=== PATIENT | female | born 1980 | race Caucasian/White ===

== ENCOUNTER 2020-10-20 15:35 | Emergency (ER) | payer OTHER ==
[2020-10-20 15:46] VITALS: TEMP 97.9
[2020-10-20] MEDS ORDERED: ONDANSETRON 4 MG/2 ML VIAL IVP STA (16:03)
[2020-10-20] MEDS ORDERED: HYDROmorphone 0.5 MG/0.5 ML SYRINGE IVP STA (16:03)
[2020-10-20] MEDS ORDERED: KETOROLAC 15 MG/ML 1 ML VIAL IVP STA (16:03)
[2020-10-20] MEDS ORDERED: SODIUM CHLORIDE 0.9% 500 ML 500 ML IV ONE (16:03)
--- NOTE | 2020-10-20 16:12 | ED ---
General Adult HPI - General Chief complaint: Recheck/Abnormal Lab/Rx Stated complaint: bilat breast pain Time Seen by Provider: 10/20/20 15:52 Source: patient Mode of arrival: ambulatory Limitations: no limitations - History of Present Illness Initial comments: 40 year-old female with past history significant for breast cancer with bilateral mastectomy and reconstruction, presents to the emergency department for evaluation of bilateral breast and axilla. States that for the last couple of weeks she has been having sharp stabbing pains to the left lateral breast near the axilla. States that today she started having pain on the right side in the same location and the pain seemed to have worsened. She denies any skin changes or swelling. Denies fever or chills. States she does feel a chest pressure overall. Denies any worsening pain with deep breathing, denies any shortness of breath. Last mammogram was 2018, has not followed up since. States she smoked marijuana and had some wine today for the pain. Patient denies any recent rash, cough, abdominal pain, nausea, vomiting, diarrhea, constipation, back pain, numbness, tingling, dizziness, weakness, hematuria, dysuria, urinary urgency, urinary frequency, headache, visual changes, or any other complaints. - Related Data Previous Rx's Medication Instructions Recorded Ibuprofen [Motrin] 600 mg PO Q8HR PRN #30 tab 10/20/20 Allergies Allergy/AdvReac Type Severity Reaction Status Date / Time vancomycin Allergy Rash/Hives Verified 10/20/20 16:30 Review of Systems ROS Statement: Those systems with pertinent positive or pertinent negative responses have been documented in the HPI. ROS Other: All systems not noted in ROS Statement are negative. Past Medical History Past Medical History: Cancer Additional Past Medical History / Comment(s): breast ca ,covid 05/04 Past Surgical History: Breast Surgery, Section, Cholecystectomy, Hernia Repair, Tubal Ligation Additional Past Surgical History / Comment(s): sanya masectomy, breast/nipple reconstruction Past Psychological History: No Psychological Hx Reported Smoking Status: Vaper Past Alcohol Use History: Occasional Past Drug Use History: Marijuana General Exam Limitations: no limitations General appearance: alert, in no apparent distress, other (Physical well- developed, well-nourished adult female patient in no acute distress. Vital signs upon presentation are temperature 97.9F, pulse 99, respirations 18, blood pressure 130/79, pulse ox 98% on room air.) Eye exam: Present: normal appearance, PERRL, EOMI. Absent: scleral icterus, conjunctival injection, periorbital swelling ENT exam: Present: normal exam, normal oropharynx, mucous membranes moist Respiratory exam: Present: normal lung sounds bilaterally. Absent: respiratory distress, wheezes, rales, rhonchi, stridor Cardiovascular Exam: Present: regular rate, normal rhythm, normal heart sounds. Absent: systolic murmur, diastolic murmur, rubs, gallop, clicks Neurological exam: Present: alert, oriented X3, CN II-XII intact Psychiatric exam: Present: normal affect, normal mood Skin exam: Present: warm, dry, intact, normal color, other (Skin overlying the breasts is pink, warm, dry. No evidence or rash. No soft tissue swelling. There is tenderness over the left lateral aspect of the breast and axilla. No lymphadenopathy noted.). Absent: rash Course Vital Signs 10/20/20 10/20/20 15:40 17:34 Temperature 97.9 F Pulse Rate 99 95 Respiratory 18 16 Rate Blood Pressure 130/79 111/83 O2 Sat by Pulse 98 98 Oximetry EKG Findings - EKG Comments: EKG Findings:: EKG obtained at 1724 shows sinus bradycardia with a ventricular rate of 57, TN interval 164, QRS duration 76, QT 424, QTc 412. No evidence of ST elevation or depression. Medical Decision Making - Medical Decision Making 40-year-old female patient with past medical history significant for breast cancer with mastectomy and reconstructive surgery presents for evaluation of bilateral breast pain. Last surgeries were completed 3 years ago. Started having pain a couple of weeks ago. Physical examination is unremarkable. Labs reviewed and are unremarkable. EKG is normal. Chest x-ray is negative. Upon reevaluation she is resting comfortable in bed states symptoms are improved. She will be discharged to follow-up with her general surgeon or breast surgeon for further evaluation as is possible. Return parameters were discussed in detail. She verbalizes understanding and agrees with this plan. Case discussed with my attending Dr. Nava. - Lab Data Result diagrams: 10/20/20 16:25 10/20/20 16:25 Lab Results 10/20/20 10/20/20 10/20/20 Range/Units 16:25 16:25 16:25 WBC 7.7 (3.8-10.6) k/uL RBC 4.68 (3.80-5.40) m/uL Hgb 14.7 (11.4-16.0) gm/dL Hct 44.0 (34.0-46.0) % MCV 94.1 (80.0-100.0) fL MCH 31.4 (25.0-35.0) pg MCHC 33.4 (31.0-37.0) g/dL RDW 12.9 (11.5-15.5) % Plt Count 264 (150-450) k/uL MPV 6.7 Neutrophils % 68 % Lymphocytes % 23 % Monocytes % 5 % Eosinophils % 1 % Basophils % 1 % Neutrophils # 5.2 (1.3-7.7) k/uL Lymphocytes # 1.7 (1.0-4.8) k/uL Monocytes # 0.4 (0-1.0) k/uL Eosinophils # 0.1 (0-0.7) k/uL Basophils # 0.1 (0-0.2) k/uL D-Dimer (<0.60) mg/L FEU Sodium 139 (137-145) mmol/L Potassium 3.7 (3.5-5.1) mmol/L Chloride 106 (98-107) mmol/L Carbon Dioxide 25 (22-30) mmol/L Anion Gap 8 mmol/L BUN 14 (7-17) mg/dL Creatinine 0.69 (0.52-1.04) mg/dL Est GFR (CKD-EPI)AfAm >90 (>60 ml/min/1.73 sqM) Est GFR (CKD-EPI)NonAf >90 (>60 ml/min/1.73 sqM) Glucose 89 (74-99) mg/dL Calcium 9.5 (8.4-10.2) mg/dL Magnesium 2.1 (1.6-2.3) mg/dL Total Bilirubin 0.8 (0.2-1.3) mg/dL AST 20 (14-36) U/L ALT 13 (4-34) U/L Alkaline Phosphatase 45 (38-126) U/L Troponin I <0.012 (0.000-0.034) ng/mL Total Protein 7.4 (6.3-8.2) g/dL Albumin 4.7 (3.5-5.0) g/dL 10/20/20 Range/Units 16:25 WBC (3.8-10.6) k/uL RBC (3.80-5.40) m/uL Hgb (11.4-16.0) gm/dL Hct (34.0-46.0) % MCV (80.0-100.0) fL MCH (25.0-35.0) pg MCHC (31.0-37.0) g/dL RDW (11.5-15.5) % Plt Count (150-450) k/uL MPV Neutrophils % % Lymphocytes % % Monocytes % % Eosinophils % % Basophils % % Neutrophils # (1.3-7.7) k/uL Lymphocytes # (1.0-4.8) k/uL Monocytes # (0-1.0) k/uL Eosinophils # (0-0.7) k/uL Basophils # (0-0.2) k/uL D-Dimer <0.17 (<0.60) mg/L FEU Sodium (137-145) mmol/L Potassium (3.5-5.1) mmol/L Chloride (98-107) mmol/L Carbon Dioxide (22-30) mmol/L Anion Gap mmol/L BUN (7-17) mg/dL Creatinine (0.52-1.04) mg/dL Est GFR (CKD-EPI)AfAm (>60 ml/min/1.73 sqM) Est GFR (CKD-EPI)NonAf (>60 ml/min/1.73 sqM) Glucose (74-99) mg/dL Calcium (8.4-10.2) mg/dL Magnesium (1.6-2.3) mg/dL Total Bilirubin (0.2-1.3) mg/dL AST (14-36) U/L ALT (4-34) U/L Alkaline Phosphatase (38-126) U/L Troponin I (0.000-0.034) ng/mL Total Protein (6.3-8.2) g/dL Albumin (3.5-5.0) g/dL - Radiology Data Radiology results: report reviewed, image reviewed 2 views of the chest are obtained. No active cardiopulmonary disease. Normal heart. Disposition Clinical Impression: Breast pain Disposition: HOME SELF-CARE Condition: Good Instructions (If sedation given, give patient instructions): Chest Pain (ED) Additional Instructions: Follow-up with your surgeon or general surgeon for further evaluation. Take medications as directed. Follow-up with primary care physician for recheck in 1-2 days. Return for any new, worsening, or concerning symptoms. Prescriptions: Ibuprofen [Motrin] 600 mg PO Q8HR PRN #30 tab PRN Reason: Pain Is patient prescribed a controlled substance at d/c from ED?: No Referrals: None,Stated [Primary Care Provider] - 1-2 days Time of Disposition: 17:30
[2020-10-20 16:35] LABS: Basophils # (A) 0.1 k/uL (0-0.2); Basophils % (A) 1 %; Eosinophils # (A) 0.1 k/uL (0-0.7); Eosinophils % (A) 1 %; HGB 14.7 gm/dL (11.4-16.0); Lymphocytes # (A) 1.7 k/uL (1.0-4.8); Lymphocytes % (A) 23 %; MCH 31.4 pg (25.0-35.0); MCHC 33.4 g/dL (31.0-37.0); MCV 94.1 fL (80.0-100.0); Mean Platelet Volume 6.7; Monocytes # (A) 0.4 k/uL (0-1.0); Monocytes % (A) 5 %; Neutrophils # (A) 5.2 k/uL (1.3-7.7); Neutrophils % (A) 68 %; Platelet Count 264 k/uL (150-450); RBC 4.68 m/uL (3.80-5.40); RDW 12.9 % (11.5-15.5); WBC 7.7 k/uL (3.8-10.6)
[2020-10-20 16:49] LABS: ALT 13 U/L (4-34); AST 20 U/L (14-36); African American GFR (CKD) >90 (>60 ml/min/1.73 sqM); Albumin 4.7 g/dL (3.5-5.0); Alkaline Phosphatase 45 U/L (38-126); Anion Gap 8 mmol/L; Blood Urea Nitrogen 14 mg/dL (7-17); Calcium 9.5 mg/dL (8.4-10.2); Carbon Dioxide 25 mmol/L (22-30); Chloride 106 mmol/L (98-107); Glucose 89 mg/dL (74-99); Magnesium 2.1 mg/dL (1.6-2.3); Non-African American GFR(CKD) >90 (>60 ml/min/1.73 sqM); Potassium 3.7 mmol/L (3.5-5.1); Sodium 139 mmol/L (137-145); Total Bilirubin 0.8 mg/dL (0.2-1.3); Total Protein 7.4 g/dL (6.3-8.2)
--- NOTE | 2020-10-20 17:05 | XR ---
EXAMINATION TYPE: XR chest 2V DATE OF EXAM: 10/20/2020 COMPARISON: NONE HISTORY: Pain TECHNIQUE: 2 views FINDINGS: Heart and mediastinum are normal. Lungs are clear. Diaphragm is normal. Bony thorax is inta ct. Pulmonary vascularity is normal. There is asymmetric breast contour consistent with previous surg melissa. IMPRESSION: No active cardiopulmonary disease. Normal heart.
[2020-10-20] MEDS ORDERED: ACET/COD 300 MG/30 MG STARTER PACK 6 TAB BTL PO STA (17:31)
[2020-10-20 17:38] VITALS: BP 111/83; PULSE 95; RESP 16
== END 2020-10-20 17:41 | disposition home or self-care (01) ==
LOC: EC 15:35
DX: N64.4 Mastodynia (principal); F17.290 Nicotine dependence, other tobacco product, uncomplicated; F12.90 Cannabis use, unspecified, uncomplicated; Z85.3 Personal history of malignant neoplasm of breast; Z86.16 Personal history of COVID-19
CPT/HCPCS: 36415; 93005; 85379; 80053; 83735; 84484; 85025; 71046; 99284; 96374; 96375 ×2; 96361; J2405; J1885; J1170

== ENCOUNTER 2020-10-31 14:46 | Emergency (ER) | payer OTHER ==
[2020-10-31 15:20] VITALS: TEMP 98
[2020-10-31] MEDS ORDERED: ONDANSETRON 4 MG/2 ML VIAL IVP STA (16:12)
[2020-10-31] MEDS ORDERED: HYDROmorphone 1 MG/ML 1 ML SYRINGE IVP STA (16:12)
--- NOTE | 2020-10-31 16:46 | ED ---
General Adult HPI - General Chief complaint: Extremity Problem,Nontraumatic Stated complaint: Breast pain Time Seen by Provider: 10/31/20 15:48 Source: patient Mode of arrival: ambulatory Limitations: no limitations - History of Present Illness Initial comments: 40 year-old female patient with past history of breast cancer, bilateral mastectomy, and breast augmentation. Patient started having pain in the left breast a couple of weeks ago . States that the pain moved to the right side. She was evaluated in the emergency department had negative cardiac workup. No evidence for infection was discharged to follow-up with the breast surgeon. She does have an appointment for December 08. States that her pain seems to be worsening. Pain is now radiating down both arms. She denies any redness or lesions over the breast. States the left breast does seem to be misshapen. She denies any fever or chills. States she has been taking Tylenol with codeine with minimal relief. She is having some nausea no vomiting. Patient denies any recent rash, cough, shortness of breath, abdominal pain, diarrhea, constipation, back pain, numbness, tingling, dizziness, weakness, hematuria, dysuria, urinary urgency, urinary frequency, headache, visual changes, or any other complaints. - Related Data Previous Rx's Medication Instructions Recorded Ibuprofen [Motrin] 600 mg PO Q8HR PRN #30 tab 10/20/20 HYDROcodone/APAP 7.5-325MG [Iuka 1 tab PO Q6HR PRN 3 Days #12 tab 10/31/20 7.5-325] Allergies Allergy/AdvReac Type Severity Reaction Status Date / Time vancomycin Allergy Rash/Hives Verified 10/31/20 15:20 Review of Systems ROS Statement: Those systems with pertinent positive or pertinent negative responses have been documented in the HPI. ROS Other: All systems not noted in ROS Statement are negative. Past Medical History Past Medical History: Cancer Additional Past Medical History / Comment(s): breast ca ,covid 05/04 Past Surgical History: Breast Surgery, Section, Cholecystectomy, Hernia Repair, Tubal Ligation Additional Past Surgical History / Comment(s): sanya masectomy, breast/nipple reconstruction Past Psychological History: No Psychological Hx Reported Smoking Status: Vaper Past Alcohol Use History: Occasional Past Drug Use History: Marijuana General Exam Limitations: no limitations General appearance: alert, in no apparent distress, other (Physical well- developed, well-nourished adult female patient in no acute distress. Vital signs upon presentation are temperature 98.0F, pulse 81, respirations 16, pulse ox 98% on room air.) Respiratory exam: Present: normal lung sounds bilaterally. Absent: respiratory distress, wheezes, rales, rhonchi, stridor Cardiovascular Exam: Present: regular rate, normal rhythm, normal heart sounds. Absent: systolic murmur, diastolic murmur, rubs, gallop, clicks GI/Abdominal exam: Present: soft, normal bowel sounds. Absent: distended, tenderness, guarding, rebound, rigid Neurological exam: Present: alert, oriented X3, CN II-XII intact Psychiatric exam: Present: normal affect, normal mood Skin exam: Present: warm, dry, intact, normal color, other (square shape noted to the left breast. No overlying erythema or swelling. Tender over the lateral aspects of each breast. ). Absent: rash Course Vital Signs 10/31/20 10/31/20 15:17 18:25 Temperature 98.0 F Pulse Rate 81 68 Respiratory 16 18 Rate Blood Pressure 128/75 O2 Sat by Pulse 98 100 Oximetry Medical Decision Making - Medical Decision Making 40-year-old female patient presents to the emergency department today for evaluation of bilateral breast pain with radiation to the arms. Patient does have history of breast cancer with bilateral mastectomy and subsequent breast augmentation. Physical examination did reveal a misshapen left breast per the patient's report. There is mild tenderness over the lateral breast regions. No soft tissue swelling, no erythema. Labs reviewed and revealed normal white blood cell count. Lactic acid was 2.5. Patient was in a couple weeks ago for the same symptoms. She does have an appointment with a breast surgeon on 12/08/2020. She will be discharged today though I did make her an appointment for breast exam, mammogram, breast ultrasound tomorrow at [facility] at 2:20 PM. She agrees to go to this appointment. She'll be discharged with pain medication. Instructed to call the neurosurgeon for a sooner appointment. Return parameters were discussed in detail. She verbalizes understanding and agrees this plan. Case discussed in my attending Dr. Mustafa. - Lab Data Result diagrams: 10/31/20 16:57 10/31/20 16:57 Lab Results 10/31/20 10/31/20 10/31/20 Range/Units 16:57 16:57 16:57 WBC 8.4 (3.8-10.6) k/uL RBC 5.13 (3.80-5.40) m/uL Hgb 16.6 H (11.4-16.0) gm/dL Hct 49.3 H (34.0-46.0) % MCV 96.1 (80.0-100.0) fL MCH 32.3 (25.0-35.0) pg MCHC 33.6 (31.0-37.0) g/dL RDW 12.8 (11.5-15.5) % Plt Count 305 (150-450) k/uL MPV 6.6 Neutrophils % 72 % Lymphocytes % 20 % Monocytes % 4 % Eosinophils % 1 % Basophils % 1 % Neutrophils # 6.0 (1.3-7.7) k/uL Lymphocytes # 1.7 (1.0-4.8) k/uL Monocytes # 0.4 (0-1.0) k/uL Eosinophils # 0.1 (0-0.7) k/uL Basophils # 0.1 (0-0.2) k/uL Sodium 141 (137-145) mmol/L Potassium 4.3 (3.5-5.1) mmol/L Chloride 103 (98-107) mmol/L Carbon Dioxide 27 (22-30) mmol/L Anion Gap 11 mmol/L BUN 16 (7-17) mg/dL Creatinine 0.68 (0.52-1.04) mg/dL Est GFR (CKD-EPI)AfAm >90 (>60 ml/min/1.73 sqM) Est GFR (CKD-EPI)NonAf >90 (>60 ml/min/1.73 sqM) Glucose 99 (74-99) mg/dL Lactic Ac Sepsis Rflx Plasma Lactic Acid Blayne 2.5 H* (0.7-2.0) mmol/L Calcium 9.7 (8.4-10.2) mg/dL Total Bilirubin 0.7 (0.2-1.3) mg/dL AST 23 (14-36) U/L ALT 16 (4-34) U/L Alkaline Phosphatase 54 (38-126) U/L Total Protein 8.1 (6.3-8.2) g/dL Albumin 5.1 H (3.5-5.0) g/dL 10/31/20 Range/Units 17:27 WBC (3.8-10.6) k/uL RBC (3.80-5.40) m/uL Hgb (11.4-16.0) gm/dL Hct (34.0-46.0) % MCV (80.0-100.0) fL MCH (25.0-35.0) pg MCHC (31.0-37.0) g/dL RDW (11.5-15.5) % Plt Count (150-450) k/uL MPV Neutrophils % % Lymphocytes % % Monocytes % % Eosinophils % % Basophils % % Neutrophils # (1.3-7.7) k/uL Lymphocytes # (1.0-4.8) k/uL Monocytes # (0-1.0) k/uL Eosinophils # (0-0.7) k/uL Basophils # (0-0.2) k/uL Sodium (137-145) mmol/L Potassium (3.5-5.1) mmol/L Chloride (98-107) mmol/L Carbon Dioxide (22-30) mmol/L Anion Gap mmol/L BUN (7-17) mg/dL Creatinine (0.52-1.04) mg/dL Est GFR (CKD-EPI)AfAm (>60 ml/min/1.73 sqM) Est GFR (CKD-EPI)NonAf (>60 ml/min/1.73 sqM) Glucose (74-99) mg/dL Lactic Ac Sepsis Rflx Y Plasma Lactic Acid Blayne (0.7-2.0) mmol/L Calcium (8.4-10.2) mg/dL Total Bilirubin (0.2-1.3) mg/dL AST (14-36) U/L ALT (4-34) U/L Alkaline Phosphatase (38-126) U/L Total Protein (6.3-8.2) g/dL Albumin (3.5-5.0) g/dL Disposition Clinical Impression: Breast pain Disposition: HOME SELF-CARE Condition: Good Additional Instructions: You were treated today for breast pain radiating to armpits and arms. You have an appointment scheduled [facility] at [facility] at 2:20pm. Take the written order with you. Take pain medication as directed. Follow-up with your primary care physician for recheck in 1-2 days. Return for any new, worsening, or concerning symptoms. Prescriptions: HYDROcodone/APAP 7.5-325MG [Iuka 7.5-325] 1 tab PO Q6HR PRN 3 Days #12 tab PRN Reason: Pain Is patient prescribed a controlled substance at d/c from ED?: No Referrals: Radha Grossman MD [STAFF PHYSICIAN] - 1-2 days Time of Disposition: 18:13
[2020-10-31 17:05] LABS: Basophils # (A) 0.1 k/uL (0-0.2); Basophils % (A) 1 %; Eosinophils # (A) 0.1 k/uL (0-0.7); Eosinophils % (A) 1 %; HCT 49.3 % (34.0-46.0); HGB 16.6 gm/dL (11.4-16.0); Lymphocytes # (A) 1.7 k/uL (1.0-4.8); Lymphocytes % (A) 20 %; MCH 32.3 pg (25.0-35.0); MCHC 33.6 g/dL (31.0-37.0); MCV 96.1 fL (80.0-100.0); Mean Platelet Volume 6.6; Monocytes # (A) 0.4 k/uL (0-1.0); Monocytes % (A) 4 %; Neutrophils % (A) 72 %; Platelet Count 305 k/uL (150-450); RBC 5.13 m/uL (3.80-5.40); RDW 12.8 % (11.5-15.5); WBC 8.4 k/uL (3.8-10.6)
[2020-10-31 17:16] LABS: ALT 16 U/L (4-34); AST 23 U/L (14-36); African American GFR (CKD) >90 (>60 ml/min/1.73 sqM); Albumin 5.1 g/dL (3.5-5.0); Alkaline Phosphatase 54 U/L (38-126); Anion Gap 11 mmol/L; Blood Urea Nitrogen 16 mg/dL (7-17); Calcium 9.7 mg/dL (8.4-10.2); Carbon Dioxide 27 mmol/L (22-30); Chloride 103 mmol/L (98-107); Glucose 99 mg/dL (74-99); Non-African American GFR(CKD) >90 (>60 ml/min/1.73 sqM); Potassium 4.3 mmol/L (3.5-5.1); Sodium 141 mmol/L (137-145); Total Bilirubin 0.7 mg/dL (0.2-1.3); Total Protein 8.1 g/dL (6.3-8.2)
[2020-10-31] MEDS ORDERED: SODIUM CHLORIDE 0.9% 1,000 ML IV ONE (17:31)
[2020-10-31 18:26] VITALS: BP 128/75; PULSE 68; RESP 18
== END 2020-10-31 18:26 | disposition home or self-care (01) ==
LOC: EC 14:46
DX: N64.4 Mastodynia (principal); Z85.3 Personal history of malignant neoplasm of breast; Z86.16 Personal history of COVID-19; F17.290 Nicotine dependence, other tobacco product, uncomplicated; F12.90 Cannabis use, unspecified, uncomplicated
CPT/HCPCS: 36415; 80053; 83605; 85025; 99283; 96374; 96375; J2405; J1170

== ENCOUNTER → 2020-11-01 | Outpatient (CLI) | payer OTHER ==
[2020-11-01 16:41] VITALS: BP 114/69; PULSE 88; RESP 18; TEMP 98.4
--- NOTE | 2020-11-01 16:51 | P.GSHP ---
History of Present Illness H&P Date: 11/01/20 Chief Complaint: Bilateral breast pain and axillary pain/status post bilateral mastectomies Joanna is a 40 year old white female with a complaint of bilateral axillary and upper outer quadrant breast pain. The patient at 37 underwent bilateral mastectomies October 10 2017. She had tissue expanders placed in the exchange surgery was done 01/06/2018. The reason for the surgery was the patient had DCIS left breast 6 nodes removed and no cancer noted. The surgery was done at [facility]. Her breast surgeon is Dr. Jain. She last saw her at one year after her cancer surgery. He did not have any hormonal, chemo, or radiation therapy. Approximately a year after her surgery there was a in the family the patient became depressed and did not follow up with anybody since that time. The patient now has experienced pain in bilateral axillas over the past year. She does not feel any lumps masses or nodules. Patient at times placed down both arms into her fingers. Denies any fever, chills, or trauma. She does not feel any new lumps masses or nodules in the breast. The patient was seen in the emergency room twice in the recent past secondary to the pain. She states a chest x-ray and EKG done in the emergency room and nothing of concern was noted. Caffeine: sweet tea daily nicotine: vape chocolate: occasional hormones: none Family history: father: throat caner paternal grandfather: pancreatic cancer maternal aunt: colon cancer Hormonal history: menarche: 11 [id number], breast fed: no, age at first : 23 periods irregular; fibroid tumors; had an ablation BCP: 14 years stopped at 31 Surgical history: Bilateral mastectomies with bilateral implant reconstruction/left axillary nodes removed 2 Hernia surgery Cystectomy Abdominal hernia Uterine ablation tubal ligation Medical history: Bilateral axillary pain extending down into the arms Social history: Nicotine: Patient vapes Alcohol: None. Drugs: Marijuana daily for pinched nerve in back - Constitutional Constitutional: Denies chills, Denies fever - EENT Eyes: bilateral blurred vision Ears: deny: decreased hearing, tinnitus Ears, nose, mouth and throat: Denies headache, Denies sore throat - Breasts Breasts: bilateral: as per HPI - Cardiovascular Cardiovascular: Denies chest pain, Denies shortness of breath - Respiratory Respiratory: Denies cough, Denies 7 - Gastrointestinal Gastrointestinal: Denies abdominal pain, Denies diarrhea, Denies nausea, Denies vomiting - Genitourinary (Female) Genitourinary: Denies dysuria, Denies hematuria - Menstruation Menstruation: Reports cycle variable - Musculoskeletal Musculoskeletal: Reports as per HPI - Integumentary Integumentary: Reports pruritus, Denies rash - Neurological Neurological: Denies numbness, Denies weakness - Psychiatric Psychiatric: Reports anxiety, Reports depression - Endocrine Endocrine: Reports weight change, Denies fatigue - Hematologic/Lymphatic Comment: none - Allergic/Immunologic Allergic/Immunologic: Reports as per HPI Past Medical History Past Medical History: Cancer Additional Past Medical History / Comment(s): breast ca ,covid 05/04 Past Surgical History: Breast Surgery, Section, Cholecystectomy, Hernia Repair, Tubal Ligation Additional Past Surgical History / Comment(s): sanya masectomy, breast/nipple reconstruction Past Psychological History: No Psychological Hx Reported Smoking Status: Vaper Past Alcohol Use History: Occasional Past Drug Use History: Marijuana Medications and Allergies Home Medications Medication Instructions Recorded Confirmed Type Ibuprofen [Motrin] 600 mg PO Q8HR PRN #30 tab 10/20/20 Rx HYDROcodone/APAP 7.5-325MG [Iola 1 tab PO Q6HR PRN 3 Days #12 tab 10/31/20 Rx 7.5-325] Allergies Allergy/AdvReac Type Severity Reaction Status Date / Time vancomycin Allergy Rash/Hives Verified 10/31/20 15:20 Surgical - Exam BMI 27.5 - General moderate distress - Eyes normal ocular movement - ENT no hearing loss - Neck no masses, trachea midline - Cardiovascular Heart Sounds: normal: S1, S2 - Abdomen Abdomen: soft - Integumentary Normal turgor - Neurologic no disoriented, no combative - Musculoskeletal normal gait - Psychiatric oriented to time, oriented to person, oriented to place, speech is normal, memory intact Breast Exam: BRA: 38D Inspection: Left breast implant is slightly higher than right, well-healed incisions bilateral from reconstruction, bilateral nipple areolar complex reconstructed Palpation: Right breast: No dominant masses or nodules of concern tenderness to palpation lateral aspect of the chest wall and the pectoralis muscle Right axilla: No adenopathy of concern Left breast: Multi-positional exam fibrocystic changes, tender to palpation upper outer quadrant on the pectoralis muscle Left axilla: No adenopathy of concern Results Results Reviewed Nothing of Concern Noted on Ultrasound of the Breast 11-02-19 Chest X-Ray Results Reviewed from Emergency Room Nothing of Concern Assessment and Plan Assessment: Impression: Patient status post bilateral mastectomy with implant reconstruction 2018 Onset bilateral axillary pain radiating down the arms greater on the left than on the right Nothing on physical examination today of concern Nothing noted on recent breast ultrasound of concern Plan: 1. Bilateral breast MRI rule out rupture of implants 2. Ultrasound of both axillas rule out any axillary abnormality 3. ALLERGY report requested from [facility] 4. Follow-up after bilateral breast MRI 5. Consider removal of implants via plastic surgery with smaller implants replacing them
== END ==
LOC: WWCWWP 16:12
PROVIDERS: ATTEND Surgery
DX: N64.4 Mastodynia (principal); Z85.3 Personal history of malignant neoplasm of breast; Z90.13 Acquired absence of bilateral breasts and nipples; F17.290 Nicotine dependence, other tobacco product, uncomplicated; Z88.1 Allergy status to other antibiotic agents

== ENCOUNTER → 2020-11-01 | Outpatient (CLI) | payer OTHER ==
--- NOTE | 2020-11-01 15:34 | USB ---
EXAMINATION TYPE: US breast complete BILAT DATE OF EXAM: 11/01/2020 COMPARISON: NONE CLINICAL HISTORY: BILATERAL BREAST PAIN,HISTORY BREAST CANCER. Findings: Both breasts were scanned with ultrasound in all 4 quadrants, the retroareolar region and axilla. Bilateral breast implants are seen. Patient is status post bilateral mastectomy. No sonographic corre late for bilateral arm pain. IMPRESSION: There is no sonographic correlate for bilateral arm pain in the breasts. Patient is status post bilat eral mastectomy with implants. If there is clinical concern for implant rupture, MRI bilateral breast s without contrast could be performed. Clinical follow-up is recommended for pain. BI-RADS 2, benign.
== END | disposition home or self-care (01) ==
LOC: RADUSWWP 14:18
PROVIDERS: ATTEND Emergency Medicine
DX: N64.4 Mastodynia (principal); Z85.3 Personal history of malignant neoplasm of breast; Z90.13 Acquired absence of bilateral breasts and nipples

== ENCOUNTER → 2020-11-10 | Outpatient (CLI) | payer OTHER ==
--- NOTE | 2020-11-13 13:24 | BMR ---
EXAMINATION TYPE: MR breast BILAT wo/w con DATE OF EXAM: 11/10/2020 COMPARISON: Complete bilateral breast ultrasound November 01, 2020 BI-RADS 2 HISTORY: History of malignant left breast cancer, double mastectomy September 2017, breast implants silico ne, breast reconstruction 2017, and nipple reconstruction 2018. Bilateral arm and shoulder pain. TECHNIQUE: A series of fat and water weighted images in the long and short axis views of both breasts are obtained in conjunction with dynamic contrast MRI with subtraction technique. The patient was i njected with 7 mL intravenous Gadavist gadolinium contrast. Three-dimensional and additional postpr ocessing imaging is created on independent workstation and reviewed during official interpretation of this study. FINDINGS: Bilateral silicone implants identified symmetric in size. Slight lobulation to margins of t he implant. No suspicious infolding or keyhole sign to suggest intracapsular rupture. No foci of sili cone outside capsule to suggest extracapsular rupture. T2 and STIR weighted images show no suspicious axillary adenopathy. Delayed dynamic postcontrast imaging shows no suspicious internal mammary adeno chester. Some motion artifact aggravation is present. No suspicious skin thickening bilaterally. No pos tcontrast suspicious pathologic enhancement or enhancing masses. Chest wall appears intact bilaterall y. IMPRESSION: Intact bilateral breast implants. Post mastectomy and reconstruction changes. BI-RADS 2 benign findings both breasts. Recommendation: Manage patient's symptoms of pain on clinical basis.
== END | disposition home or self-care (01) ==
LOC: RADMRIMAIN 20:53
PROVIDERS: ATTEND Surgery
DX: Z98.82 Breast implant status (principal); Z90.13 Acquired absence of bilateral breasts and nipples; Z85.3 Personal history of malignant neoplasm of breast
CPT/HCPCS: C8937; C8908; A9585; 77049

== ENCOUNTER → 2020-11-23 | Outpatient (CLI) | payer OTHER ==
--- NOTE | 2020-11-23 09:01 | P.PN ---
Subjective Progress Note Date: 11/23/20 Principal diagnosis: pain bilateral chest wall pain at times radiating into arms Joanna is a 40 year old white female seen with a complaint of bilateral axillary and upper outer quadrant breast pain. The patient at 37 underwent bilateral mastectomies October 10 2017. She had tissue expanders placed in the exchange surgery was done 01/06/2018. The reason for the surgery was the patient had DCIS left breast 6 nodes removed and no cancer noted. The surgery was done at [facility]. Her breast surgeon is Dr. Jain. She last saw her at one year after her cancer surgery. He did not have any hormonal, chemo, or radiation therapy. Approximately a year after her surgery there was a in the family the patient became depressed and did not follow up with anybody since that time. The patient now has experienced pain in bilateral axillas over the past year. She does not feel any lumps masses or nodules. Pain at times spreads down both arms into her fingers. Denies any fever, chills, or trauma. She does not feel any new lumps masses or nodules in the breast. The patient was seen in the emergency room twice in the recent past secondary to the pain. She states a chest x-ray and EKG done in the emergency room and nothing of concern was noted. She underwent bilateral breast MRI on . This was reviewed personally with Dr. Waggoner and did not reveal any specific lesions of concern. The patient's pain is bilateral in the axillary/lateral chest wall areas. The pain in the chest wall was described as aching but that in the arms is described as sharp pain. The patient has not had COVID vaccination. She did have COVID in April. Caffeine: sweet tea daily nicotine: vape chocolate: occasional hormones: none Family history: father: throat caner paternal grandfather: pancreatic cancer maternal aunt: colon cancer Hormonal history: menarche: 11 [id number], breast fed: no, age at first : 23 periods irregular; fibroid tumors; had an ablation BCP: 14 years stopped at 31 Surgical history: Bilateral mastectomies with bilateral implant reconstruction/left axillary nodes removed 2 Hernia surgery Cystectomy Abdominal hernia Uterine ablation tubal ligation Medical history: Bilateral axillary pain extending down into the arms Social history: Nicotine: Patient vapes Alcohol: None. Drugs: Marijuana daily for pinched nerve in back - Constitutional Constitutional: Denies chills, Denies fever - EENT Eyes: bilateral blurred vision Ears: deny: decreased hearing, tinnitus Ears, nose, mouth and throat: Denies headache, Denies sore throat - Breasts Breasts: bilateral: as per HPI - Cardiovascular Cardiovascular: Denies chest pain, Denies shortness of breath - Respiratory Respiratory: Denies cough, Denies 7 - Gastrointestinal Gastrointestinal: Denies abdominal pain, Denies diarrhea, Denies nausea, Denies vomiting - Genitourinary (Female) Genitourinary: Denies dysuria, Denies hematuria - Menstruation Menstruation: Reports cycle variable - Musculoskeletal Musculoskeletal: Reports as per HPI - Integumentary Integumentary: Reports pruritus, Denies rash - Neurological Neurological: Denies numbness, Denies weakness - Psychiatric Psychiatric: Reports anxiety, Reports depression - Endocrine Endocrine: Reports weight change, Denies fatigue - Hematologic/Lymphatic Comment: none - Allergic/Immunologic Allergic/Immunologic: Reports as per HPI Objective - Constitutional General appearance: Present: cooperative - EENT Eyes: Present: EOMI ENT: Present: hearing grossly normal - Neck Neck: Present: normal ROM - Integumentary Integumentary Comment(s): Bilateral chest wall tenderness/no axillary adenopathy in either side/breast examination on her last visit did not show any lumps masses or nodules in the chest wall Assessment and Plan Assessment: Impression: 1. Relatively recent onset bilateral chest wall/axillary discomfort with radiation intermittently into her arms 2. Family history of fibromyalgia in mother 3. Patient did have clear fluid but did not have covert vaccination 4. Family history father with rheumatoid arthritis 5. No evidence of recurrent cancer 6. No discrete anatomic lesion causing the discomfort worn interventional biopsy Plan: 1. Consider this could be fibromyalgia or an inflammatory type reaction and would recommend appointment with a nutrition director 2. Consider physical therapy 3. Follow-up here in 2 months
[2020-11-23 09:26] VITALS: BP 135/86; PULSE 74; RESP 16; TEMP 98
== END ==
LOC: WWCWWP 08:14
PROVIDERS: ATTEND Surgery
DX: R07.89 Other chest pain (principal); Z82.69 Family history of other diseases of the musculoskeletal system and connective tissue; Z82.61 Family history of arthritis; Z85.3 Personal history of malignant neoplasm of breast; Z90.13 Acquired absence of bilateral breasts and nipples; F17.290 Nicotine dependence, other tobacco product, uncomplicated; Z88.1 Allergy status to other antibiotic agents

== ENCOUNTER 2021-11-05 08:36 | Emergency (ER) | payer OTHER ==
[2021-11-05 08:47] VITALS: TEMP 98.3
[2021-11-05] MEDS ORDERED: KETOROLAC 15 MG/ML 1 ML VIAL IM STA (09:10)
--- NOTE | 2021-11-05 09:12 | ED ---
General Adult HPI - General Chief complaint: Upper Respiratory Infection Stated complaint: Cough Time Seen by Provider: 11/05/21 09:00 Source: patient, RN notes reviewed, old records reviewed Mode of arrival: ambulatory Limitations: no limitations - History of Present Illness Initial comments: 41-year-old female presents emergency room with 5 days of cough, sore throat and congestion. States that today she developed one episode of diarrhea dark in color. She states she did go to urgent care last , 2 days after symptoms started, was tested for coronavirus and negative. States that she has had coronavirus twice in the past. She denies any fevers but states has not been checking her temperature. -: days(s) (5) Severity scale (1-10): 6 Quality: constant Consistency: constant Improves with: none Associated Symptoms: cough, loss of appetite, other (sore throat and diarrhea once) - Related Data Previous Rx's Medication Instructions Recorded Ibuprofen [Motrin] 600 mg PO Q8HR PRN #30 tab 10/20/20 HYDROcodone/APAP 7.5-325MG [[place] 1 tab PO Q6HR PRN 3 Days #12 tab 10/31/20 7.5-325] Allergies Allergy/AdvReac Type Severity Reaction Status Date / Time vancomycin Allergy Rash/Hives Verified 11/05/21 08:47 Review of Systems ROS Statement: Those systems with pertinent positive or pertinent negative responses have been documented in the HPI. ROS Other: All systems not noted in ROS Statement are negative. Past Medical History Past Medical History: Cancer Additional Past Medical History / Comment(s): breast ca ,covid 05/04 History of Any Multi-Drug Resistant Organisms: None Reported Past Surgical History: Breast Surgery, Section, Cholecystectomy, Hernia Repair, Tubal Ligation Additional Past Surgical History / Comment(s): sanya masectomy, breast/nipple reconstruction Past Anesthesia/Blood Transfusion Reactions: No Reported Reaction Past Psychological History: No Psychological Hx Reported Smoking Status: Vaper Past Alcohol Use History: Occasional Past Drug Use History: Marijuana General Exam Limitations: no limitations General appearance: alert, in no apparent distress Head exam: Present: atraumatic, normocephalic Eye exam: Present: normal appearance. Absent: scleral icterus, conjunctival injection, periorbital swelling, periorbital tenderness ENT exam: Present: normal exam, normal oropharynx, mucous membranes moist Neck exam: Present: normal inspection, full ROM. Absent: tenderness, meningismus, lymphadenopathy, thyromegaly Respiratory exam: Present: normal lung sounds bilaterally. Absent: respiratory distress, wheezes, accessory muscle use, decreased breath sounds Cardiovascular Exam: Present: regular rate, normal rhythm GI/Abdominal exam: Present: soft. Absent: distended, tenderness, rigid Back exam: Present: normal inspection. Absent: full ROM, tenderness, CVA tenderness (R), CVA tenderness (L), rash noted Neurological exam: Present: alert, oriented X3 Psychiatric exam: Present: normal affect, normal mood Skin exam: Present: warm, dry, normal color. Absent: cyanosis, diaphoretic, pallor Course Vital Signs 11/05/21 11/05/21 08:44 09:50 Temperature 98.3 F Pulse Rate 86 77 Respiratory 22 18 Rate Blood Pressure 168/91 120/73 O2 Sat by Pulse 95 97 Oximetry Medical Decision Making - Medical Decision Making Patient presents with upper respiratory symptoms since last . Chest x-ray shows no acute cardiopulmonary process. Coronavirus and influenza A and B virus swabs are negative. Vital signs are stable and she is afebrile. She was given a shot of Toradol and states improvement in some of her discomfort. This is likely a viral illness. She was encouraged to increase her fluid intake Patient was instructed to follow-up with primary care doctor Tylenol and Motrin as needed for pain. Return to the emergency room with any new or concerning symptoms. She is agreeable to this plan of care. Discussed with Dr. Hagan. - Lab Data Lab Results 11/05/21 11/05/21 Range/Units 09:13 09:13 Coronavirus (PCR) Not Detected (Not Detectd) Influenza Type A RNA Not Detected (Not Detectd) Influenza Type B (PCR) Not Detected (Not Detectd) Disposition Clinical Impression: Acute upper respiratory infection Disposition: HOME SELF-CARE Instructions (If sedation given, give patient instructions): Upper Respiratory Infection (ED) Additional Instructions: Increase your fluid intake, take Tylenol and/or Motrin as needed for any body aches or pains. Follow-up with the primary care doctor next week. Return to the emergency room with any new or concerning symptoms. Is patient prescribed a controlled substance at d/c from ED?: No Referrals: None,Stated [Primary Care Provider] - 1-2 days Time of Disposition: 10:17
--- NOTE | 2021-11-05 09:28 | XR ---
EXAMINATION TYPE: XR chest 2V DATE OF EXAM: 11/05/2021 COMPARISON: 10/20/2020 INDICATION: Cough scratching sore throat TECHNIQUE: Frontal and lateral views of the chest are obtained. FINDINGS: The heart size is normal. The pulmonary vasculature is normal. The lungs are clear. IMPRESSION: 1. No acute pulmonary process.
[2021-11-05 09:51] VITALS: BP 120/73; PULSE 77; RESP 18
== END 2021-11-05 10:29 | disposition home or self-care (01) ==
LOC: EC 08:36
DX: J06.9 Acute upper respiratory infection, unspecified (principal); R19.7 Diarrhea, unspecified; R63.0 Anorexia; F17.209 Nicotine dependence, unspecified, with unspecified nicotine-induced disorders; Z20.822 Contact with and (suspected) exposure to COVID-19; Z88.1 Allergy status to other antibiotic agents
CPT/HCPCS: 87502; 87635; 71046; 99284; 96372; J1885

== ENCOUNTER 2022-10-03 10:36 | Emergency (ER) | payer BC, OTHER ==
[2022-10-03 10:41] VITALS: TEMP 98
--- NOTE | 2022-10-03 11:03 | ED ---
General Adult HPI - General Chief complaint: Extremity Problem,Nontraumatic Stated complaint: Left Leg Pain Time Seen by Provider: 10/03/22 10:47 Source: patient, RN notes reviewed Mode of arrival: ambulatory Limitations: no limitations - History of Present Illness Initial comments: Patient is a 41 year old female presenting to the ER with a chief complaint of left leg pain. Patient states she was referred from urgent care. Patient reports the pain started 09/14/22, while she was playing pool. She reports it hurts to put weight on her leg but she can walk. She states a couple days after the pain started she went on a long car ride. Patient states she's been taking [id number] pain medication and icing the back of her knee without relief. Patient does report she uses a vape and occasional marijuana use. Denies injury to back or leg, paresthesias, shortness of breath, chest pain or palpitations. Denies control, smoking, history of clots, coronary artery disease. - Related Data Previous Rx's Medication Instructions Recorded Ibuprofen [Motrin] 600 mg PO Q8HR PRN #30 tab 10/20/20 HYDROcodone/APAP 7.5-325MG [[place] 1 tab PO Q6HR PRN 3 Days #12 tab 10/31/20 7.5-325] Cyclobenzaprine [Flexeril] 10 mg PO TID PRN #15 tab 10/03/22 Ibuprofen [Motrin] 600 mg PO Q8HR PRN #20 tab 10/03/22 predniSONE 50 mg PO DAILY #5 tab 10/03/22 Allergies Allergy/AdvReac Type Severity Reaction Status Date / Time vancomycin Allergy Rash/Hives Verified 10/03/22 10:41 Review of Systems ROS Statement: Those systems with pertinent positive or pertinent negative responses have been documented in the HPI. ROS Other: All systems not noted in ROS Statement are negative. Past Medical History Past Medical History: Cancer Additional Past Medical History / Comment(s): breast ca ,covid 05/04 History of Any Multi-Drug Resistant Organisms: None Reported Past Surgical History: Breast Surgery, Section, Cholecystectomy, Hernia Repair, Tubal Ligation Additional Past Surgical History / Comment(s): sanya masectomy, breast/nipple reconstruction Past Anesthesia/Blood Transfusion Reactions: No Reported Reaction Past Psychological History: No Psychological Hx Reported Smoking Status: Vaper Past Alcohol Use History: Occasional Past Drug Use History: Marijuana General Exam Limitations: no limitations General appearance: alert, in no apparent distress Respiratory exam: Present: normal lung sounds bilaterally. Absent: respiratory distress, wheezes, rales, rhonchi, stridor Cardiovascular Exam: Present: regular rate, normal rhythm, normal heart sounds. Absent: systolic murmur, diastolic murmur, rubs, gallop, clicks Extremities exam: Present: normal inspection, full ROM, normal capillary refill, calf tenderness (left calf and posterior thigh tenderness to palpitation and pressure), other (2+ left dorsalis pedis pulse). Absent: tenderness, pedal edema, joint swelling Skin exam: Present: warm, dry, intact, normal color. Absent: rash Course Vital Signs 10/03/22 10/03/22 10:39 13:15 Temperature 98 F 98 F Pulse Rate 90 76 Respiratory 18 16 Rate Blood Pressure 142/81 135/72 O2 Sat by Pulse 98 98 Oximetry Medical Decision Making - Medical Decision Making Was pt. sent in by a medical professional or institution (JULES Shirley, CONGRESSIONAL AIDE, urgent care, hospital, or care home...) When possible be specific @ -Urgent care Did you speak to anyone other than the patient for history (EMS, parent, family, police, friend...)? What history was obtained from this source @ -No Did you review nursing and triage notes (agree or disagree)? Why? @ -I reviewed and agree with nursing and triage notes Were old charts reviewed (outside hosp., previous admission, EMS record, old EKG, old radiological studies, urgent care reports/EKG's, care home records)? Report findings @ -No old charts were reviewed Differential Diagnosis (chest pain, altered mental status, abdominal pain women, abdominal pain men, vaginal bleeding, weakness, fever, dyspnea, syncope, headache, dizziness, GI bleed, back pain, seizure, CVA, palpatations, mental health, musculoskeletal)? @ -Leg pain, sciatica, DVT, cellulitis, PAD, EKG interpreted by me (3pts min.). @ -None X-rays interpreted by me (1pt min.). @ -None done CT interpreted by me (1pt min.). @ -None done U/S interpreted by me (1pt. min.). @ -Ultrasound was negative for acute DVT What testing was considered but not performed or refused? (CT, X-rays, U/S, labs)? Why? @ -None What meds were considered but not given or refused? Why? @ -None Did you discuss the management of the patient with other professionals (professionals i.e. , PA, CONGRESSIONAL AIDE, lab, RT, psych nurse, mental health social worker, senior java web application developer, teacher, antisubmarine weapons officer, case planner)? Give summary @ -No Was smoking cessation discussed for >3mins.? @ -No Was critical care preformed (if so, how long)? @ -No Were there social determinants of health that impacted care today? How? (Homelessness, low income, unemployed, alcoholism, drug addiction, transportation, low edu. Level, literacy, decrease access to med. care, retirement, rehab)? @ -No Was there de-escalation of care discussed even if they declined (Discuss DNR or withdrawal of care, Hospice)? DNR status @ -No What co-morbidities impacted this encounter? (DM, HTN, Smoking, COPD, CAD, Can cer, CVA, ARF, Chemo, Hep., AIDS, mental health diagnosis, sleep apnea, morbid obesity)? @ -None Was patient admitted / discharged? Hospital course, mention meds given and route, prescriptions, significant lab abnormalities, going to OR and other pertinent info. @ -Discharge patient had negative ultrasound is no evidence DVT patient has equ al pedal pulses patient has equal strength patient will follow-up with orthopedics for left leg pain. Did discuss possibilities of sciatica, leg strain Undiagnosed new problem with uncertain prognosis? @ -No Drug Therapy requiring intensive monitoring for toxicity (Heparin, Nitro, Insulin, Cardizem)? @ -No Were any procedures done? @ -No Diagnosis/symptom? @ -Leg pain Acute, or Chronic, or Acute on Chronic? @ -Acute Uncomplicated (without systemic symptoms) or Complicated (systemic symptoms)? @ -Uncomplicated Side effects of treatment? @ -No Exacerbation, Progression, or Severe Exacerbation? @ -No Poses a threat to life or bodily function? How? (Chest pain, [place], [place], pneumonia, PE, COPD, DKA, ARF, appy, cholecystitis, CVA, Diverticulitis, Homicidal, Suicidal, threat to staff... and all critical care pts) @ -No Disposition Clinical Impression: Left leg pain Disposition: HOME SELF-CARE Condition: Stable Instructions (If sedation given, give patient instructions): Leg Pain (ED) Additional Instructions: Please return to the Emergency Department if symptoms worsen or any other concerns. Prescriptions: Cyclobenzaprine [Flexeril] 10 mg PO TID PRN #15 tab PRN Reason: Muscle Spasm Ibuprofen [Motrin] 600 mg PO Q8HR PRN #20 tab PRN Reason: Pain predniSONE 50 mg PO DAILY #5 tab Is patient prescribed a controlled substance at d/c from ED?: No Referrals: Harinder Wade DO [Doctor of Osteopathic Medicine] - 1-2 days Time of Disposition: 12:54
[2022-10-03 11:29] VITALS: RESP 16
--- NOTE | 2022-10-03 12:07 | US ---
EXAMINATION TYPE: US venous doppler duplex LE LT DATE OF EXAM: 10/03/2022 11:33 AM COMPARISON: NONE CLINICAL INDICATION: Female, 41 years old with history of pain; Pain left leg. SIDE PERFORMED: Left TECHNIQUE: The lower extremity deep venous system is examined utilizing real time linear array sonog dave with graded compression, doppler sonography and color-flow sonography. VESSELS IMAGED: Common Femoral Vein Deep Femoral Vein Greater Saphenous Vein * Femoral Vein Popliteal Vein Small Saphenous Vein * Proximal Calf Veins (* superficial vessels) Left Leg: Negative for DVT IMPRESSION: No evidence for DVT within the left lower extremity imaged from the groin to the upper calf.
[2022-10-03] MEDS ORDERED: KETOROLAC 15 MG/ML 1 ML VIAL IM STA (12:22)
[2022-10-03] MEDS ORDERED: ACET/COD 300 MG/30 MG STARTER PACK 6 TAB BTL PO STA (12:53)
[2022-10-03 13:16] VITALS: BP 135/72; PULSE 76
== END 2022-10-03 13:16 | disposition home or self-care (01) ==
LOC: EC 10:36
DX: M79.605 Pain in left leg (principal); F17.290 Nicotine dependence, other tobacco product, uncomplicated; F12.90 Cannabis use, unspecified, uncomplicated; Z88.1 Allergy status to other antibiotic agents
CPT/HCPCS: 93971; 99283; 96372; J1885

== ENCOUNTER → 2022-10-25 | Outpatient (CLI) | payer OTHER ==
--- NOTE | 2022-10-27 19:51 | MR ---
EXAMINATION TYPE: MR knee LT wo con DATE OF EXAM: 10/25/2022 COMPARISON: Radiograph 10/09/2022 HISTORY: 42-year-old female [id number], Left knee pain TECHNIQUE: Multiplanar, multisequence imaging of the left knee is performed without IV contrast. FINDINGS: The ACL, PCL, and MCL are intact. There is inhomogeneous signal at the femoral attachment of the LCL proper suggesting a low-grade or c hronic sprain, coronal image 21. LCL complex are otherwise intact. Both medial and lateral menisci are intact. Tricompartmental articular cartilage volumes are maintained. Extensor mechanism is intact. There is some mild edema within the suprapatellar fat pad. Small joint effusion. No sizable Uribe's cyst. Normal popliteal artery anatomy in muscle bulk. No suspicious bone marrow replacement. IMPRESSION: 1. Some inhomogeneous signal at the femoral attachment of the LCL proper could represent a low-grade or chronic sprain. Otherwise, no cruciate/collateral ligament or meniscal tear. 2. Mild edema within the suprapatellar fat pad is nonspecific but may be seen in the setting of fat p ad impingement syndrome. Clinically correlate.
== END | disposition home or self-care (01) ==
LOC: RADMRIMAIN 09:11
PROVIDERS: ATTEND Orthopaedic Surgery
DX: M25.562 Pain in left knee (principal)

== ENCOUNTER → 2023-07-19 | Outpatient (CLI) | payer BC ==
[2023-07-19 13:17] LABS: HCT 41.5 % (37.2-46.3); HGB 14.4 g/dL (12.0-15.0); MCH 31.6 pg (27.0-32.0); MCHC 34.7 g/dL (32.0-37.0); Mean Platelet Volume 9.4 FL (9.5-12.2); NRBC Per 100 WBC 0 X 10*3/uL (0.00-0.01); Platelet Count 305 X 10*3/uL (140-440); RBC 4.56 X 10*6/uL (4.10-5.20); RDW 12.6 % (11.5-14.5)
[2023-07-19 13:39] LABS: ALT 11 U/L (8-44); AST 14 U/L (13-35); Albumin 4.4 g/dL (3.8-4.9); Albumin/Globulin Ratio 1.63 Ratio (1.60-3.17); Alkaline Phosphatase 53 U/L (41-126); BUN/Creat Ratio 24.88 Ratio (12.00-20.00); Blood Urea Nitrogen 19.9 mg/dL (9.0-27.0); Calcium 9.5 mg/dL (8.7-10.3); Carbon Dioxide 21.1 mmol/L (21.6-31.8); Chloride 107 mmol/L (96-109); Estradiol 74.7 pg/mL; Globulin 2.7 g/dL (1.6-3.3); Glucose 93 mg/dL (70-110); Potassium 4.1 mmol/L (3.5-5.5); Sodium 139 mmol/L (135-145); Total Bilirubin 0.4 mg/dL (0.3-1.2); Total Protein 7.1 g/dL (6.2-8.2)
[2023-07-19 14:26] LABS: Follicle Stimulating Hormone 8.6 mIU/mL
== END | disposition home or self-care (01) ==
LOC: LABWHC1 09:41
PROVIDERS: ATTEND Internal Medicine Endocrinology, Diabetes & Metabolism
DX: R53.83 Other fatigue (principal); R23.2 Flushing
CPT/HCPCS: 36415; 80053; 82533; 82607; 82670; 83001; 84146; 84439; 84443; 84481; 85027

== ENCOUNTER 2023-09-28 03:22 | Emergency (ER) | payer BC ==
[2023-09-28 03:40] VITALS: TEMP 97.5
--- NOTE | 2023-09-28 07:06 | ED ---
Lower Extremity Injury HPI - General Chief Complaint: Extremity Injury, Lower Stated Complaint: Right foot injury Time Seen by Provider: 09/28/23 06:08 Source: patient, RN notes reviewed Mode of arrival: ambulatory Limitations: no limitations - History of Present Illness Initial Comments: This is a 42-year-old female who presents to the emergency department for right ankle pain. States that about 5 days ago her daughter fell off of her skateboard, and the skateboard shot out from underneath her and struck the patient in her right ankle. She has since had increasing pain, swelling, and bruising, largely to the outer aspect of the foot and ankle. She is still able to ambulate but states that it is difficult. She been trying to apply ice and is alternating with ibuprofen and Tylenol without significant relief. MD Complaint: ankle injury - Related Data Previous Rx's Medication Instructions Recorded Ibuprofen [Motrin] 600 mg PO Q8HR PRN #30 tab 10/20/20 HYDROcodone/APAP 7.5-325MG [[place] 1 tab PO Q6HR PRN 3 Days #12 tab 10/31/20 7.5-325] Cyclobenzaprine [Flexeril] 10 mg PO TID PRN #15 tab 10/03/22 Ibuprofen [Motrin] 600 mg PO Q8HR PRN #20 tab 10/03/22 predniSONE 50 mg PO DAILY #5 tab 10/03/22 Naproxen Sodium 550 mg PO BID PRN #30 tablet 09/28/23 Allergies Allergy/AdvReac Type Severity Reaction Status Date / Time vancomycin Allergy Rash/Hives Verified 09/28/23 03:37 Review of Systems ROS Statement: Those systems with pertinent positive or pertinent negative responses have been documented in the HPI. ROS Other: All systems not noted in ROS Statement are negative. Past Medical History Past Medical History: Cancer Additional Past Medical History / Comment(s): breast ca ,covid 05/04 History of Any Multi-Drug Resistant Organisms: None Reported Past Surgical History: Breast Surgery, Section, Cholecystectomy, Hernia Repair, Tubal Ligation Additional Past Surgical History / Comment(s): sanya masectomy, breast/nipple reconstruction Past Anesthesia/Blood Transfusion Reactions: No Reported Reaction Past Psychological History: No Psychological Hx Reported Smoking Status: Former smoker Past Alcohol Use History: Occasional Past Drug Use History: Marijuana General Exam Limitations: no limitations General appearance: alert, in no apparent distress Head exam: Present: atraumatic, normocephalic, normal inspection Respiratory exam: Present: normal lung sounds bilaterally. Absent: respiratory distress, wheezes, rales, rhonchi, stridor Cardiovascular Exam: Present: regular rate, normal rhythm, normal heart sounds. Absent: systolic murmur, diastolic murmur, rubs, gallop, clicks Extremities exam: Present: other (Swelling, tenderness, and ecchymosis to the lateral aspect of the right ankle. Full range of motion. 2+ DP and PT pulses.) Neurological exam: Present: alert, oriented X3, CN II-XII intact Psychiatric exam: Present: normal affect, normal mood Course Vital Signs 09/28/23 09/28/23 03:37 08:07 Temperature 97.5 F L Pulse Rate 97 77 Respiratory 18 14 Rate Blood Pressure 135/78 117/80 O2 Sat by Pulse 95 98 Oximetry Medical Decision Making - Medical Decision Making This is a 42 year old female who presents to the emergency department for right ankle pain. Was pt. sent in by a medical professional or institution? @ -No Did you speak to anyone other than the patient for history? @ -No Did you review nursing and triage notes? @ -Yes, and I agree, it is accurate with regards to the patient's symptoms. Were old charts reviewed? @ -No Differential Diagnosis? @ -Differential Musculoskeletal: Muscular strain, contusion, ligament sprain, fracture, arthritis, septic arthritis, bursitis, cellulitis, muscle spasm, nerve compression, DVT, arterial occlusion, herpes zoster, electrolyte abnormality, tumor.... This is not meant to be in all inclusive list EKG interpreted by me (3pts min.)? @ -Not obtained X-rays interpreted by me (1pt min.)? @ -X-ray of the right foot and ankle obtained. My interpretation identifies no acute fractures. CT interpreted by me (1pt min.)? @ -Not obtained U/S interpreted by me (1pt. min.)? @ -Not obtained What testing was considered but not performed? (CT, X-rays, U/S, labs)? Why? @ -None What meds were considered but not given? Why? @ -None Did you discuss the management of the patient with other professionals? @ -No Did you reconcile home meds? @ -No Was smoking cessation discussed for >3mins.? @ -No Was critical care preformed (if so, how long)? @ -No Were there social determinants of health that impacted care today? How? (Homelessness, low income, unemployed, alcoholism, drug addiction, transportation, low edu. Level, literacy, decrease access to med. care, [facility], rehab)? @ -No Was there de-escalation of care discussed even if they declined? (Discuss DNR or withdrawal of care, Hospice)? @ -No What co-morbidities impacted this encounter? (DM, HTN, Smoking, COPD, CAD, Cancer, CVA, Hep., AIDS, mental health diagnosis, sleep apnea, morbid obesity)? @ -None Was patient admitted / discharged? @ -Discharged. X-ray of the right foot and ankle obtained revealing soft tissu e swelling without any acute fractures. Pain was managed in the emergency department. Crutches and a Velcro splint were provided to be used as needed. Naproxen prescribed for pain management. Advised ice and elevation as well. Information for orthopedic follow-up provided. Undiagnosed new problem with uncertain prognosis? @ -None Drug Therapy requiring intensive monitoring for toxicity (Heparin, Nitro, Insulin, Cardizem)? @ -None Were any procedures done? @ -None Diagnosis/symptom? @ -Right ankle sprain/contusion Acute, or Chronic, or Acute on Chronic? @ -Acute Uncomplicated (without systemic symptoms) or Complicated (systemic symptoms)? @ -Uncomplicated Side effects of treatment? @ -None Exacerbation, Progression, or Severe Exacerbation] @ -Not applicable Poses a threat to life or bodily function? @ -This may limit her ability to ambulate for the mean time. Return precautions reviewed in depth, the patient is instructed to return to the emergency department with any new, worsening, or concerning symptoms. Patient verbalized understanding. This case was discussed in detail with the attending ED physician, Dr. Monreal. Presentation, findings, and treatment plan discussed in detail as well. - Radiology Data Radiology results: report reviewed, image reviewed Disposition Clinical Impression: Right ankle sprain Disposition: HOME SELF-CARE Instructions (If sedation given, give patient instructions): Ankle Sprain (ED) Additional Instructions: Return to the emergency department with any new, worsening, or concerning symptoms. Take the naproxen twice daily as needed with Tylenol for pain relief. Apply ice and elevate the leg. Use crutches and the splints provided as needed. Contact orthopedics as listed below for a follow-up appointment. Prescriptions: Naproxen Sodium 550 mg PO BID PRN #30 tablet PRN Reason: Pain Is patient prescribed a controlled substance at d/c from ED?: No Referrals: None,Stated [Primary Care Provider] - 1-2 days Dani Herman MD [STAFF PHYSICIAN] - 1-2 days Time of Disposition: 07:37
--- NOTE | 2023-09-28 07:16 | XR ---
EXAMINATION TYPE: XR ankle complete RT, XR foot limited RT DATE OF EXAM: 09/28/2023 3:53 AM CLINICAL INDICATION:Female, 42 years old with history of pain; COMPARISON: None TECHNIQUE: XR ankle complete RT, XR foot limited RT; are imaged in frontal, lateral and oblique proj ections. FINDINGS: There is no evidence of acute osseous pathology. No evidence of subluxation or dislocation. Kager's fat pad is intact. Mild soft tissue swelling around the ankle. No radiopaque foreign bodies are ident ified. IMPRESSION: 1. Soft tissue swelling without evidence of acute fracture. 2. Subcutaneous swelling around the ankle likely secondary to underlying soft tissue injury.
[2023-09-28] MEDS: HYDROcodone/APAP 7.5-325MG 1 EACH TAB PO ONE (07:48)
[2023-09-28] MEDS: KETOROLAC 15 MG/ML 1 ML VIAL IM STA (07:49)
[2023-09-28] MEDS: ACET/COD 300 MG/30 MG STARTER PACK 6 TAB BTL PO STA (07:49)
[2023-09-28 08:08] VITALS: BP 117/80; PULSE 77; RESP 14
== END 2023-09-28 08:08 | disposition home or self-care (01) ==
LOC: EC 03:22
DX: S93.401A Sprain of unspecified ligament of right ankle, initial encounter (principal); Z88.1 Allergy status to other antibiotic agents; Z87.891 Personal history of nicotine dependence; W22.8XXA Striking against or struck by other objects, initial encounter
CPT/HCPCS: 73610; 73620; 99283; 96372; J1885

== ENCOUNTER 2024-06-27 17:20 | Emergency (ER) | payer BC, OTHER ==
--- NOTE | 2024-06-27 17:48 | ED ---
General Adult HPI - General Chief complaint: Upper Respiratory Infection Stated complaint: ALICIA Time Seen by Provider: 06/27/24 17:27 Source: patient, family, RN notes reviewed Mode of arrival: ambulatory Limitations: no limitations - History of Present Illness Initial comments: 43-year-old female presents emergency department for complaint of dry cough and started this morning. Patient states that her cough is intermittently productive and dry while she is having a "coughing fit "she feels like she is having a hard time taking a deep breath. States that she is starting experience a headache and in addition to rhinorrhea, postnasal drip, congestion. She denies fevers, chills, chest pain, heart palpitations, peripheral edema, history of DVT or PE, recent prolonged travel or recent surgeries. Patient was recently treated for bronchitis with antibiotics however did not complete the full course. She was also prescribed benzonatate and albuterol inhaler which she took a dose of Tessalon Perles with minimal relief in symptoms. - Related Data Previous Rx's Medication Instructions Recorded Ibuprofen [Motrin] 600 mg PO Q8HR PRN #30 tab 10/20/20 HYDROcodone/APAP 7.5-325MG [[place] 1 tab PO Q6HR PRN 3 Days #12 tab 10/31/20 7.5-325] Cyclobenzaprine [Flexeril] 10 mg PO TID PRN #15 tab 10/03/22 Ibuprofen [Motrin] 600 mg PO Q8HR PRN #20 tab 10/03/22 predniSONE 50 mg PO DAILY #5 tab 10/03/22 Naproxen Sodium 550 mg PO BID PRN #30 tablet 09/28/23 Albuterol Inhaler [Ventolin Hfa 1 - 2 puff INHALATION Q6H PRN #1 06/27/24 Inhaler] each Allergies Allergy/AdvReac Type Severity Reaction Status Date / Time vancomycin Allergy Rash/Hives Verified 09/28/23 03:37 Review of Systems ROS Statement: Those systems with pertinent positive or pertinent negative responses have been documented in the HPI. ROS Other: All systems not noted in ROS Statement are negative. Past Medical History Past Medical History: Cancer Additional Past Medical History / Comment(s): breast ca ,covid 05/04 History of Any Multi-Drug Resistant Organisms: None Reported Past Surgical History: Breast Surgery, Section, Cholecystectomy, Hernia Repair, Tubal Ligation Additional Past Surgical History / Comment(s): sanya masectomy, breast/nipple reconstruction Past Anesthesia/Blood Transfusion Reactions: No Reported Reaction Past Psychological History: No Psychological Hx Reported Smoking Status: Former smoker Past Alcohol Use History: Occasional Past Drug Use History: Marijuana General Exam Limitations: no limitations General appearance: alert, in no apparent distress ENT exam: Present: normal exam, mucous membranes moist Neck exam: Present: normal inspection. Absent: tenderness, meningismus, lymphadenopathy Respiratory exam: Present: normal lung sounds bilaterally. Absent: respiratory distress, wheezes, rales, rhonchi, stridor Cardiovascular Exam: Present: regular rate, normal rhythm, normal heart sounds. Absent: systolic murmur, diastolic murmur, rubs, gallop, clicks GI/Abdominal exam: Present: soft, normal bowel sounds. Absent: distended, tenderness, guarding, rebound, rigid Extremities exam: Present: normal inspection, full ROM, normal capillary refill. Absent: tenderness, pedal edema, joint swelling, calf tenderness Back exam: Present: normal inspection Neurological exam: Present: alert, oriented X3, CN II-XII intact Course Vital Signs 06/27/24 06/27/24 06/27/24 17:21 17:34 18:51 Temperature 98.2 F Pulse Rate 64 93 Respiratory 26 H 24 18 Rate Blood Pressure 121/66 O2 Sat by Pulse 96 Oximetry 06/27/24 06/27/24 18:58 20:05 Temperature 98.6 F Pulse Rate 92 98 Respiratory 18 16 Rate Blood Pressure 132/81 O2 Sat by Pulse 96 Oximetry Medical Decision Making - Medical Decision Making Was pt. sent in by a medical professional or institution (, PA, HADOOP CONSULTANT, urgent care, hospital, or longterm...) When possible be specific @ -No Did you speak to anyone other than the patient for history (EMS, parent, family, police, friend...)? What history was obtained from this source @ -No Did you review nursing and triage notes (agree or disagree)? Why? @ -I reviewed and agree with nursing and triage notes Were old charts reviewed (outside hosp., previous admission, EMS record, old EKG, old radiological studies, urgent care reports/EKG's, longterm records)? Report findings @ -No old charts were reviewed Differential Diagnosis (chest pain, altered mental status, abdominal pain women, abdominal pain men, vaginal bleeding, weakness, fever, dyspnea, syncope, headache, dizziness, GI bleed, back pain, seizure, CVA, palpatations, mental health, musculoskeletal)? @ -COVID 19, RSV, influenza, pneumonia, acute bronchitis, URI, this list is not all inclusive EKG interpreted by me (3pts min.). @ -None X-rays interpreted by me (1pt min.). @ -Chest x-ray no acute process CT interpreted by me (1pt min.). @ -None done U/S interpreted by me (1pt. min.). @ -None done What testing was considered but not performed or refused? (CT, X-rays, U/S, labs)? Why? @ -None What meds were considered but not given or refused? Why? @ -None Did you discuss the management of the patient with other professionals (professionals i.e. , PA, HADOOP CONSULTANT, lab, RT, psych nurse, psychiatric social worker supervisor, flake drier, teacher, unclaimed property officer, nurse case management)? Give summary @ -No Was smoking cessation discussed for >3mins.? @ -No Was critical care preformed (if so, how long)? @ -No Were there social determinants of health that impacted care today? How? (Homelessness, low income, unemployed, alcoholism, drug addiction, transport ation, low edu. Level, literacy, decrease access to med. care, [facility], rehab)? @ -No Was there de-escalation of care discussed even if they declined (Discuss DNR or withdrawal of care, Hospice)? DNR status @ -No What co-morbidities impacted this encounter? (DM, HTN, Smoking, COPD, CAD, Cancer, CVA, ARF, Chemo, Hep., AIDS, mental health diagnosis, sleep apnea, morbid obesity)? @ -None Was patient admitted / discharged? Hospital course, mention meds given and route, prescriptions, significant lab abnormalities, going to OR and other pertinent info. @ -Discharge. 43-year-old female presenting with URI symptoms. Overall she is well-appearing no signs of respiratory distress. Vitals are stable. Patient noted to have multiple dry coughing fits while in the emergency department. Viral testing chest x-ray unremarkable. She is better with dose of steroid in addition to breathing treatment and cough suppressant medication. Believe that symptoms are viral in nature and recommend continued [id number] treatment and follow-up with primary care provider in 1 to 3 days for further evaluation. Case discussed with Dr. Gay Undiagnosed new problem with uncertain prognosis? @ -No Drug Therapy requiring intensive monitoring for toxicity (Heparin, Nitro, Insulin, Cardizem)? @ -No Were any procedures done? @ -No Diagnosis/symptom? @ -Viral syndrome Acute, or Chronic, or Acute on Chronic? @ -Acute Uncomplicated (without systemic symptoms) or Complicated (systemic symptoms)? @ -Uncomplicated Side effects of treatment? @ -No Exacerbation, Progression, or Severe Exacerbation? @ -No Poses a threat to life or bodily function? How? (Chest pain, [place], [place], pneumonia, PE, COPD, DKA, ARF, appy, cholecystitis, CVA, Diverticulitis, Homicidal, Suicidal, threat to staff... and all critical care pts) @ -No - Lab Data Lab Results 06/27/24 Range/Units 18:01 Influenza Type A (PCR) Not Detected (Not Detectd) Influenza Type B (PCR) Not Detected (Not Detectd) RSV (PCR) Not Detected (Not Detectd) SARS-CoV-2 (PCR) Not Detected (Not Detectd) Disposition Clinical Impression: Viral syndrome, Cough Disposition: HOME SELF-CARE Condition: Good Instructions (If sedation given, give patient instructions): Viral Syndrome (ED) Additional Instructions: Please return to the Emergency Department if symptoms worsen or any other concerns. Continue supportive treatment such as use of lozenges, warm liquids, and [id number] medications with the active ingredient guaifenesin Prescriptions: Albuterol Inhaler [Ventolin Hfa Inhaler] 1 - 2 puff INHALATION Q6H PRN #1 each PRN Reason: Shortness Of Breath Is patient prescribed a controlled substance at d/c from ED?: No Referrals: None,Stated [Primary Care Provider] - 1-2 days Time of Disposition: 19:44
[2024-06-27] MEDS: methylPREDNISolone SOD SUCCI 125 MG/2 ML VIAL IM ONE (18:03)
--- NOTE | 2024-06-27 18:03 | XR ---
EXAMINATION TYPE: XR chest 2V DATE OF EXAM: 06/27/2024 5:58 PM COMPARISON: 11/05/2021 CLINICAL INDICATION: Female, 43 years old with history of cough, chills, TECHNIQUE: Frontal and lateral views of the chest are obtained. FINDINGS: There is no focal air space opacity, pleural effusion, or pneumothorax seen. The cardiac silhouette size is within normal limits. The osseous structures are intact. IMPRESSION: No acute cardiopulmonary process. [facility], , 06/27/2024 6:01 PM
[2024-06-27 18:41] LABS: Influenza A Not Detected (Not Detectd); Influenza B Not Detected (Not Detectd); RSV Not Detected (Not Detectd)
[2024-06-27] MEDS: IPRATROPIUM-ALBUTEROL 3 ML NEB INHALATION STA (18:51)
[2024-06-27] MEDS: guaiFENesin-Coden 100-10MG/5ML 10 ML CUP PO STA (19:36)
[2024-06-27 20:08] VITALS: BP 132/81; PULSE 98; RESP 16; TEMP 98.6
== END 2024-06-27 20:05 | disposition home or self-care (01) ==
LOC: EC 17:20
DX: R05.9 Cough, unspecified (principal); B34.9 Viral infection, unspecified; Z87.891 Personal history of nicotine dependence; Z88.1 Allergy status to other antibiotic agents
CPT/HCPCS: 94640; 87636; 71046; 99285; 96372; J2919

== ENCOUNTER 2024-07-16 09:46 | Emergency (ER) | payer OTHER ==
--- NOTE | 2024-07-16 11:03 | ED ---
General Adult HPI - General Chief complaint: Recheck/Abnormal Lab/Rx Stated complaint: post op issues Time Seen by Provider: 07/16/24 11:00 Source: patient, RN notes reviewed Mode of arrival: ambulatory - History of Present Illness Initial comments: 43-year-old female presenting for postop complication. Patient underwent bilateral breast reconstruction surgery 3 days ago at [facility] by Dr. Miramontes. States this was an outpatient procedure. 2 days ago, patient began to experience swelling to the arms, legs, and face. States this has been progressively worsening in severity and is making it difficult to ambulate due to a tightness sensation. Denies unilateral leg swelling, fever, cough, nausea, vomiting, chest pain, shortness of breath. States she called the surgeon's office who instructed her to come to the nearest ER. States she had a bilateral mastectomy secondary to breast surgery 7 years ago and the surgery was a reconstruction surgery of the breast/nipple with fat grafting from the abdomen. Denies blood thinners. No other health conditions. - Related Data Home Medications Medication Instructions Recorded Confirmed Acetaminophen 1,000 mg PO TID 07/16/24 07/16/24 Albuterol Inhaler [Ventolin Hfa 1 puff INHALATION RT-BID PRN 07/16/24 07/16/24 Inhaler] methocarbamoL [Robaxin-750] 750 mg PO TID 07/16/24 07/16/24 oxyCODONE HCL [oxyCODONE HCL (IR)] 5 mg PO Q6H PRN 07/16/24 07/16/24 Previous Rx's Medication Instructions Recorded Ibuprofen [Motrin] 600 mg PO Q8HR PRN #30 tab 10/20/20 Allergies Allergy/AdvReac Type Severity Reaction Status Date / Time vancomycin Allergy Rash/Hives Verified 07/16/24 10:30 Review of Systems ROS Statement: Those systems with pertinent positive or pertinent negative responses have been documented in the HPI. ROS Other: All systems not noted in ROS Statement are negative. Past Medical History Past Medical History: Cancer Additional Past Medical History / Comment(s): breast ca ,covid 05/04 History of Any Multi-Drug Resistant Organisms: None Reported Past Surgical History: Breast Surgery, Section, Cholecystectomy, Hernia Repair, Tubal Ligation Additional Past Surgical History / Comment(s): sanya masectomy, breast/nipple reconstruction. Breat Surgery Capsulotomy and bilat fat grafting July 13 Past Anesthesia/Blood Transfusion Reactions: No Reported Reaction Past Psychological History: No Psychological Hx Reported Smoking Status: Former smoker Past Alcohol Use History: Occasional Past Drug Use History: Marijuana General Exam General appearance: alert, in no apparent distress Head exam: Present: atraumatic, normocephalic, normal inspection Eye exam: Present: normal appearance, PERRL, EOMI. Absent: scleral icterus, conjunctival injection, periorbital swelling Respiratory exam: Present: normal lung sounds bilaterally. Absent: respiratory distress, wheezes, rales, rhonchi, stridor Cardiovascular Exam: Present: regular rate, normal rhythm, normal heart sounds, other (Bilateral breasts mild contusions, no erythema, warmth, or drainage). Absent: systolic murmur, diastolic murmur, rubs, gallop, clicks GI/Abdominal exam: Present: soft, normal bowel sounds, other (Contusions present around incision sites. No erythema, warmth, or drainage). Absent: distended, tenderness, guarding, rebound, rigid Neurological exam: Present: alert, oriented X3 Psychiatric exam: Present: normal affect, normal mood Skin exam: Present: warm, dry, intact, normal color. Absent: rash Course Vital Signs 07/16/24 07/16/24 10:00 11:11 Temperature 97.5 F L Pulse Rate 100 87 Respiratory 18 18 Rate Blood Pressure 137/75 135/81 O2 Sat by Pulse 98 96 Oximetry EKG Findings - EKG Results: EKG: interpreted by ERMD (EKG reveals normal sinus rhythm with no ST changes. Ventricular rate 86 bpm, WI interval 166, QRS duration 78, QT/QTc 331/375) Medical Decision Making - Medical Decision Making Was pt. sent in by a medical professional or institution (, PA, BEAUT[employer] MANAGER, urgent care, hospital, or long term...) When possible be specific @ -No Did you speak to anyone other than the patient for history (EMS, parent, family, police, friend...)? What history was obtained from this source @ -No Did you review nursing and triage notes (agree or disagree)? Why? @ -I reviewed and agree with nursing and triage notes Were old charts reviewed (outside hosp., previous admission, EMS record, old EKG, old radiological studies, urgent care reports/EKG's, long term records)? Report findings @ -No old charts were reviewed Differential Diagnosis (chest pain, altered mental status, abdominal pain women, abdominal pain men, vaginal bleeding, weakness, fever, dyspnea, syncope, headache, dizziness, GI bleed, back pain, seizure, CVA, palpatations, mental health, musculoskeletal)? @ -Idiopathic edema, pneumonia, cellulitis, acute kidney injury EKG interpreted by me (3pts min.). @ -As above X-rays interpreted by me (1pt min.). @ -Chest x-ray reveals no acute process CT interpreted by me (1pt min.). @ -None done U/S interpreted by me (1pt. min.). @ -None done What testing was considered but not performed or refused? (CT, X-rays, U/S, labs)? Why? @ -None What meds were considered but not given or refused? Why? @ -None Did you discuss the management of the patient with other professionals (professionals i.e. , PA, BEAUT[employer] MANAGER, lab, RT, psych nurse, social contact worker, arabic translator, teacher, chief accounting officer, caser)? Give summary @ -No Was smoking cessation discussed for >3mins.? @ -No Was critical care preformed (if so, how long)? @ -No Were there social determinants of health that impacted care today? How? (Homelessness, low income, unemployed, alcoholism, drug addiction, transportation, low edu. Level, literacy, decrease access to med. care, shelter, rehab)? @ -No Was there de-escalation of care discussed even if they declined (Discuss DNR or withdrawal of care, Hospice)? DNR status @ -No What co-morbidities impacted this encounter? (DM, HTN, Smoking, COPD, CAD, Cancer, CVA, ARF, Chemo, Hep., AIDS, mental health diagnosis, sleep apnea, morbid obesity)? @ -None Was patient admitted / discharged? Hospital course, mention meds given and route, prescriptions, significant lab abnormalities, going to OR and other pertinent info. @ - discharge. 43-year-old female presents for swelling of the arms, legs, and face status post bilateral breast reconstruction surgery 3 days ago at [facility] with Dr. Miramontes. Patient is afebrile, nontachycardic. No sign of bacterial infection on physical examination. Patient is provided with analgesics for supportive care. Lab work largely unremarkable. White blood cell count normal at 8. EKG reveals normal sinus rhythm with no ST changes. Chest x-ray negative for acute disease. Discussed negative results with patient. I do not identify emergent etiology causing edema today. Appropriate return precautions and follow-up care with surgeon discussed. Case was discussed with my ED attending Dr. Monreal. Undiagnosed new problem with uncertain prognosis? @ -No Drug Therapy requiring intensive monitoring for toxicity (Heparin, Nitro, Insulin, Cardizem)? @ -No Were any procedures done? @ -No Diagnosis/symptom? @ -Edema s/p surgery Acute, or Chronic, or Acute on Chronic? @ -Acute Uncomplicated (without systemic symptoms) or Complicated (systemic symptoms)? @ -Uncomplicated Side effects of treatment? @ -No Exacerbation, Progression, or Severe Exacerbation? @ -No Poses a threat to life or bodily function? How? (Chest pain, [place], [place], pneumonia, PE, COPD, DKA, ARF, appy, cholecystitis, CVA, Diverticulitis, Homicidal, Suicidal, threat to staff... and all critical care pts) @ -Not at this time - Lab Data Result diagrams: 07/16/24 11:32 07/16/24 11:32 Lab Results 07/16/24 07/16/24 07/16/24 Range/Units 11:32 11:32 12:30 WBC 8.3 (3.8-10.6) k/uL RBC 3.65 L (3.80-5.40) m/uL Hgb 11.4 (11.4-16.0) gm/dL Hct 33.6 L (34.0-46.0) % MCV 92.1 (80.0-100.0) fL MCH 31.2 (25.0-35.0) pg MCHC 33.9 (31.0-37.0) g/dL RDW 12.8 (11.5-15.5) % Plt Count 242 (150-450) k/uL MPV 7.3 Neutrophils % 68 % Lymphocytes % 19 % Monocytes % 6 % Eosinophils % 4 % Basophils % 0 % Neutrophils # 5.6 (1.3-7.7) k/uL Lymphocytes # 1.5 (1.0-4.8) k/uL Monocytes # 0.5 (0-1.0) k/uL Eosinophils # 0.4 (0-0.7) k/uL Basophils # 0.0 (0-0.2) k/uL Sodium 135 L (137-145) mmol/L Potassium 4.1 (3.5-5.1) mmol/L Chloride 102 (98-107) mmol/L Carbon Dioxide 26 (22-30) mmol/L Anion Gap 7 mmol/L BUN 19 H (7-17) mg/dL Creatinine 0.68 (0.52-1.04) mg/dL Est GFR (CKD-EPI)AfAm >90 (>60 ml/min/1.73 sqM) Est GFR (CKD-EPI)NonAf >90 (>60 ml/min/1.73 sqM) Glucose 86 (74-99) mg/dL Calcium 8.7 (8.4-10.2) mg/dL Total Bilirubin 0.6 (0.2-1.3) mg/dL AST 26 (14-36) U/L ALT 38 H (4-34) U/L Alkaline Phosphatase 47 (38-126) U/L Total Protein 6.1 L (6.3-8.2) g/dL Albumin 3.5 (3.5-5.0) g/dL Urine Color Urine Appearance (Clear) Urine pH (5.0-8.0) Ur Specific [place] (1.001-1.035) Urine Protein (Negative) Urine Glucose (UA) (Negative) Urine Ketones (Negative) Urine Blood (Negative) Urine Nitrite (Negative) Urine Bilirubin (Negative) Urine Urobilinogen (<2.0) mg/dL Ur Leukocyte Esterase (Negative) Urine HCG, Qual Not Detected (Not Detectd) 07/16/24 Range/Units 12:30 WBC (3.8-10.6) k/uL RBC (3.80-5.40) m/uL Hgb (11.4-16.0) gm/dL Hct (34.0-46.0) % MCV (80.0-100.0) fL MCH (25.0-35.0) pg MCHC (31.0-37.0) g/dL RDW (11.5-15.5) % Plt Count (150-450) k/uL MPV Neutrophils % % Lymphocytes % % Monocytes % % Eosinophils % % Basophils % % Neutrophils # (1.3-7.7) k/uL Lymphocytes # (1.0-4.8) k/uL Monocytes # (0-1.0) k/uL Eosinophils # (0-0.7) k/uL Basophils # (0-0.2) k/uL Sodium (137-145) mmol/L Potassium (3.5-5.1) mmol/L Chloride (98-107) mmol/L Carbon Dioxide (22-30) mmol/L Anion Gap mmol/L BUN (7-17) mg/dL Creatinine (0.52-1.04) mg/dL Est GFR (CKD-EPI)AfAm (>60 ml/min/1.73 sqM) Est GFR (CKD-EPI)NonAf (>60 ml/min/1.73 sqM) Glucose (74-99) mg/dL Calcium (8.4-10.2) mg/dL Total Bilirubin (0.2-1.3) mg/dL AST (14-36) U/L ALT (4-34) U/L Alkaline Phosphatase (38-126) U/L Total Protein (6.3-8.2) g/dL Albumin (3.5-5.0) g/dL Urine Color Colorless Urine Appearance Clear (Clear) Urine pH 7.0 (5.0-8.0) Ur Specific [place] 1.006 (1.001-1.035) Urine Protein Negative (Negative) Urine Glucose (UA) Negative (Negative) Urine Ketones Negative (Negative) Urine Blood Negative (Negative) Urine Nitrite Negative (Negative) Urine Bilirubin Negative (Negative) Urine Urobilinogen <2.0 (<2.0) mg/dL Ur Leukocyte Esterase Negative (Negative) Urine HCG, Qual (Not Detectd) Disposition Clinical Impression: Post-operative complication, Edema Disposition: HOME SELF-CARE Condition: Stable Instructions (If sedation given, give patient instructions): Edema (ED) Additional Instructions: Follow-up with your surgeon as discussed. Please return to the Emergency Department if symptoms worsen or any other concerns. Is patient prescribed a controlled substance at d/c from ED?: No Referrals: None,Stated [Primary Care Provider] - 1-2 days Time of Disposition: 13:20
[2024-07-16] MEDS: ONDANSETRON 4 MG/2 ML VIAL IVP STA (11:33)
[2024-07-16] MEDS: MORPHINE SULFATE 4 MG/ML SYRINGE IVP STA (11:34)
--- NOTE | 2024-07-16 11:57 | XR ---
EXAMINATION TYPE: XR chest 2V DATE OF EXAM: 07/16/2024 CLINICAL INDICATION: Female, 43 years old with history of anasarca s/p breast surgery, TECHNIQUE: Frontal and lateral views of the chest are obtained. COMPARISON: Chest x-ray June 27, 2024 FINDINGS: There is no focal air space opacity, pleural effusion, or pneumothorax seen. The cardiac silhouette size remains within normal limits. The osseous structures are intact. IMPRESSION: No acute cardiopulmonary process. [facility], , 07/16/2024 11:55 AM
[2024-07-16 12:13] LABS: Basophils % (A) 0 %; Eosinophils # (A) 0.4 k/uL (0-0.7); Eosinophils % (A) 4 %; HCT 33.6 % (34.0-46.0); HGB 11.4 gm/dL (11.4-16.0); Lymphocytes # (A) 1.5 k/uL (1.0-4.8); Lymphocytes % (A) 19 %; MCH 31.2 pg (25.0-35.0); MCHC 33.9 g/dL (31.0-37.0); MCV 92.1 fL (80.0-100.0); Mean Platelet Volume 7.3; Monocytes # (A) 0.5 k/uL (0-1.0); Monocytes % (A) 6 %; Neutrophils # (A) 5.6 k/uL (1.3-7.7); Neutrophils % (A) 68 %; Platelet Count 242 k/uL (150-450); RBC 3.65 m/uL (3.80-5.40); RDW 12.8 % (11.5-15.5); WBC 8.3 k/uL (3.8-10.6)
[2024-07-16 12:21] LABS: ALT 38 U/L (4-34); AST 26 U/L (14-36); African American GFR (CKD) >90 (>60 ml/min/1.73 sqM); Albumin 3.5 g/dL (3.5-5.0); Alkaline Phosphatase 47 U/L (38-126); Anion Gap 7 mmol/L; Blood Urea Nitrogen 19 mg/dL (7-17); Calcium 8.7 mg/dL (8.4-10.2); Carbon Dioxide 26 mmol/L (22-30); Chloride 102 mmol/L (98-107); Glucose 86 mg/dL (74-99); Non-African American GFR(CKD) >90 (>60 ml/min/1.73 sqM); Potassium 4.1 mmol/L (3.5-5.1); Sodium 135 mmol/L (137-145); Total Bilirubin 0.6 mg/dL (0.2-1.3); Total Protein 6.1 g/dL (6.3-8.2)
[2024-07-16 13:11] LABS: Appearance,Urine Clear (Clear); Bilirubin,Urine Negative (Negative); Blood,Urine Negative (Negative); Color,Urine Colorless; Glucose,Urine (UA) Negative (Negative); Ketones,Urine Negative (Negative); Leukocyte Esterase,Urine Negative (Negative); Nitrite,Urine Negative (Negative); Protein,Urine Negative (Negative); Specific Gravity,Urine 1.006 (1.001-1.035); Urobilinogen,Urine <2.0 mg/dL (<2.0)
[2024-07-16 14:05] VITALS: BP 119/76; PULSE 78; RESP 20; TEMP 98.7
== END 2024-07-16 13:40 | disposition home or self-care (01) ==
LOC: EC 09:46
DX: R60.9 Edema, unspecified (principal); Z98.890 Other specified postprocedural states; Z90.13 Acquired absence of bilateral breasts and nipples; Z87.891 Personal history of nicotine dependence; Z88.1 Allergy status to other antibiotic agents
CPT/HCPCS: 36415; 93005; 80053; 85025; 81003; 81025; 71046; 99284; 96374; 96375; J2270; J2405